=== PATIENT | female | born 1955 | race Caucasian/White ===

== ENCOUNTER 2016-10-30 11:40 | Inpatient (IN) | payer BC ==
[~2016-10-30] VITALS: Ht 157.5 cm; Wt 58.5 kg
[~2016-10-30 11:40] MED LIST: ATOR20TA38 PO; OMEP20CA16 PO; RIZA10TA4 PO; TOPI-25 PO; TOPI50TA5 PO
[2016-10-30 11:44] VITALS: Ht 157.5 cm; Wt 58.5 kg
[2016-10-30] MEDS ORDERED: NITROGLYCERIN 2% 1 GM OINT PKT TD STA (11:58)
[2016-10-30] MEDS ORDERED: ASPIRIN 81 MG TAB PO STA (11:58)
[2016-10-30] MEDS ORDERED: NITROGLYCERIN (SL) 0.4 MG TAB SL PRN (12:00)
[2016-10-30] MEDS ORDERED: RIFA550T4 PO (12:06)
[2016-10-30] MEDS ORDERED: ESCI5TAB PO (12:07)
[2016-10-30] MEDS ORDERED: RABE20TA5 PO (12:07)
[2016-10-30 12:11] LABS: ADD SCAN DIFF NO
[2016-10-30 12:13] LABS: BASOPHILS % 0.6 % (0.0-2.0); EOSINOPHILS # 0.1 10^3/ul (0.0-0.5); EOSINOPHILS % 1.4 % (0.0-7.0); HEMATOCRIT 33.7 % (37.0-47.0); HEMOGLOBIN 11.2 g/dl (12.0-16.0); LYMPHOCYTES # 1.3 10^3/ul (0.8-2.9); LYMPHOCYTES % 25.4 % (15.0-51.0); MEAN CORPUSCULAR HEMOGLOBIN 26.9 pg (29.0-33.0); MEAN CORPUSCULAR HGB CONC 33.2 g/dl (32.0-37.0); MEAN CORPUSCULAR VOLUME 80.8 fl (82.0-101.0); MONOCYTE # 0.4 10^3/ul (0.3-0.9); NEUTROPHIL # 3.2 10^3/ul (1.6-7.5); NEUTROPHILS % 64.4 % (39.0-77.0); PLATELET COUNT 107 10^3/UL (140-415); RED BLOOD COUNT 4.17 10^6/ul (4.20-5.40); RED CELL DISTRIBUTION WIDTH 15.6 % (11.5-14.5)
[2016-10-30 12:14] LABS: MEAN PLATELET VOLUME 11.4 fl (7.4-10.4)
[2016-10-30 12:29] LABS: INR 1.12; PROTIME 14.4 Sec (12.2-14.2); PT RATIO 1.1
[2016-10-30 12:30] LABS: PARTIAL THROMBOPLASTIN TIME 38.8 Sec (25.0-35.0)
--- NOTE | 2016-10-30 12:31 | RADRPT ---
PROCEDURE: Chest Radiograph. CLINICAL INDICATION: Chest pain TECHNIQUE: Single frontal chest radiograph. COMPARISON: Chest radiograph 02/18/2014 FINDINGS: The cardiomediastinal silhouette is within normal limits. No infiltrate or effusion is seen. Th e bones are intact. IMPRESSION: 1. Unremarkable chest radiograph. RPTAT: KK .Taz Villatoro MD, MD Date Time Electronically viewed and signed by .Taz Villatoro MD, on 10/30/2016 12:31 .B/
[2016-10-30 12:39] LABS: ANION GAP 11 (8-16); BLOOD UREA NITROGEN 15 mg/dl (7-20); CALCIUM 9.6 mg/dl (8.4-10.2); CARBON DIOXIDE 22 mmol/L (21-31); CHLORIDE 103 mmol/L (97-110); CREATININE 0.81 mg/dl (0.44-1.00); GLUCOSE 84 mg/dl (70-220); POTASSIUM 3.8 mmol/L (3.5-5.1); SODIUM 132 mmol/L (135-144)
[2016-10-30 12:45] LABS: PLATELET ESTIMATE PLT APPEAR DECREASED
[2016-10-30 12:58] LABS: TROPONIN-I < 0.012 ng/ml (0.00-0.12)
[2016-10-30] MEDS ORDERED: ONDANSETRON 4 MG INJ IV PRN ×2 (13:00→13:30)
[2016-10-30] MEDS ORDERED: ACETAMINOPHEN 325 MG TAB PO PRN ×2 (13:00→13:30)
--- NOTE | 2016-10-30 13:28 | HP ---
Date/Time of Note Date/Time of Note DATE: 10/30/16 TIME: 13:17 Assessment/Plan VTE Prophylaxis VTE Prophylaxis Intervention: other Lines/Catheters IV Catheter Type (from Nrsg): Saline Lock Assessment/Plan Assessment/Plan 1. Atypical chest pain with but marked elev of chol resonable to observe and obtain stress echo/nucl mill, consider repatha later, await cards eval. Doubt sxs are gi related. 2. Hyperlipidemia 3. Alcoholic liver dz, having successfully abstained at least 6 months after intensive in patient program. HPI/ROS Admit Date/Time Admit Date/Time October 30, 1:15 PM Hx of Present Illness Admitted with recurrent episodes of chest pain, pred right sided that on occasion rad to mid chest and on occasion to her left neck most often at rest without relationship to eating and on 1 occasion with nausea. These episodes last less then 1 hour, not pleuritic and not assoc with new cough. SOB may occur with these episodes. Onset of these sxs werre 4 days ago. ROS Respiratory: No cough, No sputum, No wheezing Gastrointestinal: other (occ epig discomfort and reflux sxs) Genitourinary: no complaints Musculoskeletal: no complaints Skin: no complaints Neurologic: No headache PMH/Family/Social Past Medical History 1. Hyperlipidemia for which she has not tolerated statins 2. Chronic liver dz sec to alcohol, have abstained 3. Hx migraine headaches 4. Hx anemia sec to liver dz 5. Hx varices, s/p ligation 6. Hx gastritis 7. Prior stress echo, remote nl 8. Hx sciatica gaining relief from epidural 9. Known peripheral neuropathy Family History Significant Family History: no pertinent family hx Social History Alcohol Use: sober Smoking Status: Former smoker Exam/Review of Systems Vital Signs Vitals Vital Signs Date Time Temp Pulse Resp B/P Pulse Ox O2 Delivery O2 Flow Rate FiO2 10/30/16 12:54 61 18 117/64 98 10/30/16 11:44 97.9 Exam Constitutional: No alert, No distress Eyes: No EOMI, No PERRL ENMT: nl external ears & nose, nl lips & teeth, nl nasal mucosa & septum Neck: non-tender, supple Respiratory: clear to auscultation, normal air movement Cardiovascular: nl pulses, regular rate and rhythm, No S3, No S4, No bruits, No diastolic murmur, No edema, No gallop, No irregular rhythm, No jugular venous distention (JVD), No murmurs/extra sounds, No other, No rub, No systolic murmur Gastrointestinal: hepatomegaly (with liver edge palp 1 cm below rcm, no palp spleen) Musculoskeletal: nl extremities to inspection Extremities: No calf tenderness, No pitting pedal edema, No tenderness Neurological: INTEGRATION ASSISTANT II-XII intact, nl mental status, nl speech, nl strength Skin: nl turgor, No rash or lesions Labs Result Diagram: 10/30/16 1205 10/30/16 1205 Medications Medications Current Medications Escitalopram Oxalate (Lexapro) 5 mg DAILY PO ; Start 10/31/16 at 09:00; Status UNV Rifaximin (Xifaxan) 550 mg BID PO ; Start 10/30/16 at 13:30; Status UNV Topiramate (Topamax) 50 mg QAM PO ; Start 10/31/16 at 09:00; Status UNV Topiramate (Topamax) 100 mg QPM PO ; Start 10/30/16 at 21:00; Status UNV Pantoprazole (Protonix Tab) 40 mg BID@06,18 PO ; Start 10/30/16 at 18:00; Status UNV Aspirin (Halfprin) 162 mg DAILY PO ; Start 10/31/16 at 09:00; Status UNV AARON ALCOCER MD Oct 30, 2016 13:28
[2016-10-30] MEDS ORDERED: NACL 0.9% 3 ML SYG IV SCH (13:30)
[2016-10-30] MEDS ORDERED: DOCUSATE SODIUM 100 MG CAP PO PRN (13:30)
[2016-10-30] MEDS: RIFAXIMIN 550 MG TAB PO SCH ×2 (13:30→21:07)
--- NOTE | 2016-10-30 13:38 | ERA ---
ER Documentation Chief Complaint Date/Time DATE: 10/30/16 TIME: 13:35 Chief Complaint chest pain since yesterday , no sob HPI Patient is a 61-year-old female with cirrhosis who presents with chest pain. The patient started with chest pain a few days ago but the pain was worse yesterday. She said that she had a midsternal "gripping pain". It lasted a few minutes and then went away. She denies shortness of breath. She has never had this before. She called her primary doctor Dr. Billy who sent her to the emergency department. She has not taken aspirin today. Upon review of old medical records this is the patient's third visit to the ER since 2001. ROS All systems reviewed and are negative except as per history of present illness. Medications Home Meds Reported Medications Rabeprazole Sodium* (Aciphex*) 20 Mg Tablet.dr, 20 MG PO DAILY, #30 TAB 10/30/16 Escitalopram Oxalate* (Lexapro*) 5 Mg Tablet, 5 MG PO DAILY, #30 TAB 10/30/16 Rifaximin* (Xifaxan*) 550 Mg Tablet, 550 MG PO BID, TAB 10/30/16 Topiramate* (Topiramate*) 100 Mg Tablet, 100 MG PO QPM, TAB 02/17/14 Topiramate* (Topiramate*) 50 Mg Tablet, 50 MG PO QAM, TAB 02/17/14 Discontinued Reported Medications Atorvastatin Calcium* (Atorvastatin Calcium*) 20 Mg Tablet, 20 MG PO HS, TAB 02/17/14 Rizatriptan Benzoate (Maxalt SENIOR SOFTWARE DEVELOPMENT ENGINEER) 10 Mg/Tab Tab.rapdis, 10 MG PO DAILY Y for MIGRANES, TAB may repeat after 2 hours, MAX 30 mg/24 hour 02/17/14 Omeprazole* (Omeprazole*) 20 Mg Capsule.dr, 20 MG PO DAILY, CAP 02/17/14 Allergies Allergies: Coded Allergies: codeine (Verified Allergy, Unknown, HIVES, 10/30/16) PMhx/Soc History of Surgery: Yes (COLONOSCOPY 5 DAYS AGO) Anesthesia Reaction: No Hx Neurological Disorder: No Hx Respiratory Disorders: Yes (PNA YEARS AGO) Hx Cardiac Disorders: No Hx Psychiatric Problems: No Hx Miscellaneous Medical Probl: Yes (ANEMIA, VAGINAL CARCINOMA 2012, HYPERCHOLESTEROLEMIA) Hx Alcohol Use: Yes (QUIT 5 MONTHS AGO) Hx Substance Use: No Hx Tobacco Use: No Smoking Status: Former smoker FmHx Family History: coronary disease Physical Exam Vitals Vital Signs Date Time Temp Pulse Resp B/P Pulse Ox O2 Delivery O2 Flow Rate FiO2 10/30/16 11:44 97.9 65 18 149/65 98 Physical Exam Const: No acute distress Head: Atraumatic Eyes: Normal Conjunctiva ENT: Normal External Ears, Nose and Mouth. Neck: Full range of motion..~ No meningismus. Resp: Clear to auscultation bilaterally Cardio: Regular rate and rhythm, no murmurs Abd: Soft, non tender, non distended. Normal bowel sounds Skin: No petechiae or rashes Back: No midline or flank tenderness Ext: No cyanosis, or edema Neur: Awake and alert Psych: Normal Mood and Affect Result Diagram: 10/30/16 1205 10/30/16 1205 Results 24 hrs Laboratory Tests Test 10/30/16 12:05 White Blood Count 5.010^3/ul Red Blood Count 4.1710^6/ul Hemoglobin 11.2g/dl Hematocrit 33.7% Mean Corpuscular Volume 80.8fl Mean Corpuscular Hemoglobin 26.9pg Mean Corpuscular Hemoglobin Concent 33.2g/dl Red Cell Distribution Width 15.6% Platelet Count 10438^3/UL Mean Platelet Volume 11.4fl Neutrophils % 64.4% Lymphocytes % 25.4% Monocytes % 8.0% Eosinophils % 1.4% Basophils % 0.6% Nucleated Red Blood Cells % 0.0/100WBC Neutrophils # 3.210^3/ul Lymphocytes # 1.310^3/ul Monocytes # 0.410^3/ul Eosinophils # 0.110^3/ul Basophils # 0.010^3/ul Nucleated Red Blood Cells # 0.010^3/ul Differential Comment AUTO w/SCAN Platelet Estimate PLT APPEAR DECREASED Prothrombin Time 14.4Sec Prothrombin Time Ratio 1.1 INR International Normalized Ratio 1.12 Activated Partial Thromboplast Time 38.8Sec Sodium Level 132mmol/L Potassium Level 3.8mmol/L Chloride Level 103mmol/L Carbon Dioxide Level 22mmol/L Anion Gap 11 Blood Urea Nitrogen 15mg/dl Creatinine 0.81mg/dl Glucose Level 84mg/dl Calcium Level 9.6mg/dl Troponin I < 0.012ng/ml Current Medications Medications (Trade) Dose Ordered Sig/Oswaldo Route PRN Reason Start Time Stop Time Status Last Admin Dose Admin Aspirin (Aspirin) 162 mg ONCE STAT PO 10/30/16 11:58 10/30/16 11:59 DC 10/30/16 12:13 Nitroglycerin (Nitroglycerin 2% Oint) 1 inch ONCE STAT TD 10/30/16 11:58 10/30/16 11:59 DC 10/30/16 12:14 Nitroglycerin (Nitroglycerin (Sl Tab) 0.4 Mg) 1 tab Q5M UP TO 3 DOSES PRN SL CHEST PAIN 10/30/16 12:00 Procedures/MDM EKG read by me: Rate/Rhythm: Regular rate and rhythm at a normal rate Intervals: Normal Impression: No evidence of ischemia or arrhythmia Chest x-ray negative per radiology. Patient is a 61-year-old female with cirrhosis who presents with chest pain. Her EKG was normal and her initial troponin was negative. Chest x-ray shows no pneumonia or pneumothorax. At this point I was concerned for acute coronary syndrome and therefore the patient will be admitted to a telemetry bed under the care of Dr. Billy. I doubt pneumonia, pneumothorax, pulmonary embolism, or aortic dissection. Dr. Billy has seen the patient in the emergency department already. Departure Diagnosis: Primary Impression: Chest pain Qualified Code: R07.9 - Chest pain, unspecified type Additional Impressions: Anemia Qualified Code: D64.9 - Anemia, unspecified type Hyponatremia Condition: ARTUR Snell MD Oct 30, 2016 13:38
[2016-10-30 14:20] VITALS: PULSE 57
--- NOTE | 2016-10-30 14:27 | CONS ---
Date/Time of Note Date/Time of Note DATE: 10/30/16 TIME: 13:36 Assessment/Plan Assessment/Plan Chief Complaint/Hosp Course Impression: - atypical chest pain- pain at rest, lasting a few mins. resolved on its own. complete acs r/o with serial trop/ekg. plan for stress testing in am to risk stratify given recurrent chest pain episodes. could also be related to gi/gerd, cont antiacid therapy. - hld- previously intolerant to statins, f/u as outpt - liver disease/etoh- per primary Problems: Consultation Date/Type/Reason Admit Date/Time October 30, 1:15 PM Date of Consultation: Oct 30, 2016 Type of Consultation: Cardiology Reason for Consultation chest pain Referring Provider: AARON ALCOCER MD Hx of Present Illness Ms. Christensen is a pleasant 61 y.o. woman without past cardiac hx. Pt presented to [facility] after having recurrent chest pain. States started 2-3 days ago and has had 4-5 episodes of sharp R sided chest pain, moderate in intensity, non radiating, without associated n/v, sweating, palpitations, dizziness, sob. Pain occurs at rest and lasts a few minutes then has a dull ache after for a few mins. Pain did wake her up from sleep last night around 2 am, and recurred this am so she drove herself to [facility] ED. Troponin neg x 1. echo obtained with normal LVEF, no wma. CXR without acute abnl and ekg with nsr, no ischemic changes. pt denies current cp. 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 Constitutional: no complaints Eyes: no complaints ENT: no complaints Respiratory: no complaints, No cough, No sputum, No wheezing Cardiovascular: chest pain Gastrointestinal: other (occ epig discomfort and reflux sxs) Genitourinary: no complaints Musculoskeletal: no complaints Skin: no complaints Neurologic: no complaints, No headache Psychological: nl mood/affect, no complaints Past Medical History 1. Hyperlipidemia for which she has not tolerated statins 2. Chronic liver dz sec to alcohol, have abstained 3. Hx migraine headaches 4. Hx anemia sec to liver dz 5. Hx varices, s/p ligation 6. Hx gastritis 7. Prior stress echo, remote nl 8. Hx sciatica gaining relief from epidural 9. Known peripheral neuropathy Family History Significant Family History: other (no high risk cad) Social History Alcohol Use: sober Smoking Status: Former smoker Drug Use: none Exam/Review of Systems Vital Signs Vitals Vital Signs Date Time Temp Pulse Resp B/P Pulse Ox O2 Delivery O2 Flow Rate FiO2 10/30/16 12:54 61 18 117/64 98 10/30/16 11:44 97.9 Exam Constitutional: alert, oriented Psych: no complaints Head: atraumatic, normocephalic Eyes: EOMI, nl conjunctiva ENMT: nl external ears & nose, nl nasal mucosa & septum Neck: non-tender, supple, No jvd Respiratory: clear to auscultation, normal air movement Cardiovascular: nl pulses, regular rate and rhythm, No edema, No irregular rhythm, No jugular venous distention (JVD), No murmurs /extra sounds Gastrointestinal: non-tender, soft Musculoskeletal: nl extremities to inspection Extremities: normal pulses Neurological: LEAD ETL DEVELOPER II-XII intact, nl mental status, nl speech, nl strength Results Result Diagram: 10/30/16 1205 10/30/16 1205 Results 24 hrs Laboratory Tests Test 10/30/16 12:05 White Blood Count 5.0 Red Blood Count 4.17 #L Hemoglobin 11.2 L Hematocrit 33.7 #L Mean Corpuscular Volume 80.8 L Mean Corpuscular Hemoglobin 26.9 L Mean Corpuscular Hemoglobin Concent 33.2 Red Cell Distribution Width 15.6 H Platelet Count 107 L Mean Platelet Volume 11.4 #H Neutrophils % 64.4 Lymphocytes % 25.4 Monocytes % 8.0 Eosinophils % 1.4 Basophils % 0.6 Nucleated Red Blood Cells % 0.0 Neutrophils # 3.2 Lymphocytes # 1.3 Monocytes # 0.4 Eosinophils # 0.1 Basophils # 0.0 Nucleated Red Blood Cells # 0.0 Differential Comment AUTO w/SCAN Platelet Estimate PLT APPEAR DECREASED Prothrombin Time 14.4 H Prothrombin Time Ratio 1.1 INR International Normalized Ratio 1.12 Activated Partial Thromboplast Time 38.8 H Sodium Level 132 L Potassium Level 3.8 Chloride Level 103 Carbon Dioxide Level 22 Anion Gap 11 Blood Urea Nitrogen 15 Creatinine 0.81 Glucose Level 84 Calcium Level 9.6 Troponin I < 0.012 Medications Medications Current Medications Escitalopram Oxalate (Lexapro) 5 mg DAILY PO ; Start 10/31/16 at 09:00 Rifaximin (Xifaxan) 550 mg BID PO ; Start 10/30/16 at 13:30 Topiramate (Topamax) 50 mg QAM PO ; Start 10/31/16 at 09:00 Topiramate (Topamax) 100 mg QPM PO ; Start 10/30/16 at 21:00 Pantoprazole (Protonix Tab) 40 mg BID@06,18 PO ; Start 10/30/16 at 18:00 Aspirin (Halfprin) 162 mg DAILY PO ; Start 10/31/16 at 09:00 Ondansetron HCl (Zofran Inj) 4 mg Q6H PRN IV NAUSEA AND/OR VOMITING; Start 10/30 at 13:30 Acetaminophen (Tylenol Tab) 650 mg Q6H PRN PO PAIN LEVEL 1-3 OR FEVER; Start at 13:30 Docusate Sodium (Colace) 100 mg Q12H PRN PO CONSTIPATION; Start 10/30/16 at 13: 30 Procedures Procedures cxr images reviewed, no acute abnl YOSELIN LEVY Oct 30, 2016 13:46
[2016-10-30 15:53] VITALS: BP 129/60; RESP 19
[2016-10-30 16:22] VITALS: PULSE 70
[2016-10-30] MEDS: PANTOPRAZOLE (EC) 40 MG TAB PO SCH (17:14)
[2016-10-30 18:13] LABS: CREATINE KINASE 57 IU/L (23-200)
[2016-10-30 18:26] LABS: CK-MB 0.72 ng/ml (0.0-2.4)
[2016-10-30 18:32] LABS: TROPONIN-I < 0.012 ng/ml (0.00-0.12)
[2016-10-30 20:00] VITALS: PULSE 65
[2016-10-30 20:11] VITALS: BP 120/60; RESP 20
[2016-10-30] MEDS ORDERED: TOPIRAMATE 100 MG TAB PO SCH (21:00)
--- NOTE | 2016-10-30 22:52 | RADRPT ---
Echocardiogram Report Patient Name: LOPEZ PHELPS Gender: Female Date: 1955 Study Date: 30-Oct-2016 Solvent Plant Operator: Satnam Cisneros [facility] Location: [id number] Ref. Physician: AARON ALCOCER Quality: Good Procedures: Transthoracic echocardiogram with complete 2D, M-Mode, and doppler examination. Indications: Chest Pain. 2D/M Mode Doppler Measurement Value Normal Ranges Measurement Value Normal Ranges LVIDd 2D 3.3 3.5 - 5.6 cm MODESTA Vmax 1.9 cm2 LVIDs 2D 2.3 2.1 - 4.1 cm MODESTA VTI 1.9 cm2 LVPWd 2D 0.9 0.6 - 1.1 cm AV Peak Se[place]our 1.3 m/sec IVSd 2D 0.9 0.6 - 1.1 cm AV Peak PG 6.3 mmHg AoR Diam 2D 2.7 2.0 - 3.7 cm LVOT Peak [place]our 1.3 m/sec EDV 2D 44.8 cm3 LVOT Peak PG 7.2 mmHg ESV 2D 12.4 cm3 TR Peak Se[place]our 2.2 m/sec LA Dimen 2D 3.4 2.3 - 4.0 cm TR Peak PG 20.1 mmHg LVOT Diam 1.5 cm RVSP 23.1 mmHg Findings Left Ventricle: Normal left ventricular systolic function. Normal left ventricular cavity size. Normal left ventricular wall thickness. Ejection fraction is visually estimated at 60 %. Tissue Doppler/Mitral Doppler indices are within normal limits. Right Ventricle: Normal right ventricular size. Normal right ventricular systolic function. Left Atrium: The left atrium is normal in size. Right Atrium: The right atrium is normal in size. Mitral Valve: Normal appearance and function of the mitral valve with trace physiologic regurgitation. Aortic Valve: No significant aortic stenosis or insufficiency. Aortic sclerosis without stenosis. Tricuspid Valve: Normal appearance of the tricuspid valve. Normal right ventricular systolic pressure. Estimated peak PA systolic pressure 26 mmHg. There is mild tricuspid regurgitation. Pulmonic Valve: Normal pulmonic valve appearance. There is trace pulmonic regurgitation. Pericardium: Normal pericardium with no significant pericardial effusion. Aorta: Normal aortic root. IVC: Normal size and normal respiratory collapse consistent with normal right atrial pressure. Conclusions Normal left ventricular systolic function. Normal left ventricular cavity size. Normal left ventricular wall thickness. Ejection fraction is visually estimated at 60 %. Tissue Doppler/Mitral Doppler indices are within normal limits. Normal right ventricular size. Normal right ventricular systolic function. No significant aortic stenosis or insufficiency. Aortic sclerosis without stenosis. Normal appearance of the tricuspid valve. Normal right ventricular systolic pressure. Estimated peak PA systolic pressure 26 mmHg. There is mild tricuspid regurgitation. Normal pericardium with no significant pericardial effusion. Normal size and normal respiratory collapse consistent with normal right atrial pressure. No Vegetation, masses, or thrombi seen. Electronically Signed By: Donald Mcintosh 30-Oct-2016 22:51:32 -0700 Patient Name: LOPEZ PHELPS Study Date: 30-Oct-2016 [id number]
[2016-10-30 23:52] VITALS: BP 125/63; RESP 20
[2016-10-31] VITALS: PULSE 65
[2016-10-31 01:01] LABS: CREATINE KINASE 48 IU/L (23-200)
[2016-10-31 01:21] LABS: TROPONIN-I < 0.012 ng/ml (0.00-0.12)
[2016-10-31 04:00] VITALS: PULSE 66
[2016-10-31 04:19] VITALS: BP 114/58; RESP 18
[2016-10-31 06:11] LABS: ADD SCAN DIFF NO
[2016-10-31] MEDS: PANTOPRAZOLE (EC) 40 MG TAB PO SCH (06:16)
[2016-10-31 06:19] LABS: ABNORMAL IP MESSAGE 1; BASOPHILS % 0.5 % (0.0-2.0); EOSINOPHILS # 0.1 10^3/ul (0.0-0.5); EOSINOPHILS % 2.5 % (0.0-7.0); HEMATOCRIT 35.2 % (37.0-47.0); HEMOGLOBIN 11.4 g/dl (12.0-16.0); LYMPHOCYTES # 1.2 10^3/ul (0.8-2.9); LYMPHOCYTES % 28.7 % (15.0-51.0); MEAN CORPUSCULAR HEMOGLOBIN 26.3 pg (29.0-33.0); MEAN CORPUSCULAR HGB CONC 32.4 g/dl (32.0-37.0); MEAN CORPUSCULAR VOLUME 81.3 fl (82.0-101.0); MEAN PLATELET VOLUME 11.6 fl (7.4-10.4); MONOCYTE # 0.4 10^3/ul (0.3-0.9); MONOCYTES % 9.3 % (0.0-11.0); NEUTROPHIL # 2.4 10^3/ul (1.6-7.5); NEUTROPHILS % 58.8 % (39.0-77.0); RED BLOOD COUNT 4.33 10^6/ul (4.20-5.40); RED CELL DISTRIBUTION WIDTH 15.8 % (11.5-14.5); WHITE BLOOD COUNT 4.1 10^3/ul (4.8-10.8)
[2016-10-31 06:55] LABS: ALBUMIN 4.5 g/dl (3.3-4.9); ALBUMIN/GLOBULIN RATIO 1.66; BILIRUBIN,INDIRECT 0.1 mg/dl (0-1.1); BILIRUBIN,TOTAL 0.1 mg/dl (0.2-1.3); CALCIUM 9.8 mg/dl (8.4-10.2); CREATININE 0.86 mg/dl (0.44-1.00); POTASSIUM 4.5 mmol/L (3.5-5.1); TOTAL PROTEIN 7.2 g/dl (6.1-8.1)
[2016-10-31 07:03] LABS: IRON 30 ug/dl (35-150)
[2016-10-31 07:05] LABS: MAGNESIUM 1.9 mg/dl (1.7-2.5)
[2016-10-31 07:12] LABS: THYROID STIMULATING HORMONE 1.78 MIU/L (0.465-4.680); TOTAL IRON BINDING CAPACITY 333 ug/dl (241-421)
[2016-10-31 07:16] LABS: FERRITIN 12.9 ng/ml (11.1-264.0)
[2016-10-31 08:04] VITALS: BP 102/55; PULSE 60; PULSE 66; RESP 18
[2016-10-31] MEDS: RIFAXIMIN 550 MG TAB PO SCH (08:33)
[2016-10-31] MEDS ORDERED: ASPIRIN (EC) 81 MG TAB PO SCH (09:00)
[2016-10-31] MEDS ORDERED: TOPIRAMATE 25 MG TAB PO SCH (09:00)
[2016-10-31] MEDS ORDERED: ESCITALOPRAM 10 MG TAB PO SCH (09:00)
[2016-10-31 09:24] LABS: PLATELET COUNT 96 10^3/UL (140-415); PLATELET ESTIMATE PLT APPEAR DECREASED
--- NOTE | 2016-10-31 09:26 | RADRPT ---
PROCEDURE: US Abdomen complete. CLINICAL INDICATION: Right-sided abdominal pain TECHNIQUE: Multiple real-time longitudinal and transverse images were acquired of the patient's ab domen and retroperitoneum utilizing a curved array transducer. COMPARISON: CT abdomen and pelvis dated 02/17/2014 FINDINGS: The liver is normal in size and demonstrates normal echogenicity. There is a 4.5 cm cyst within th e left hepatic lobe The gallbladder is normal in appearance. There is no pericholecystic fluid or g allbladder wall thickening. No intra or extrahepatic biliary dilatation is seen. The common bile padmini t measures 4.5 mm in maximal dimension. The visualized portions of the pancreas are unremarkable wi th obscuration of the tail of the pancreas. The spleen is normal. No free fluid is identified. The right kidney measures 11.0 cm in length. The left kidney measures 9.6 cm in length. There is n ormal echogenicity within the kidneys. There are no perinephric fluid collections. No hydronephros is, mass, or calculus is seen. The aorta and IVC are unremarkable. IMPRESSION: Left hepatic lobe cyst measuring 4.5 cm in diameter. Findings are not significantly changed when co mpared to prior CT abdomen and pelvis dated 02/17/2014. Otherwise, unremarkable abdominal ultrasoun d. RPTAT: HH .Yola Joseph MD, Date Time Electronically viewed and signed by .Yola Joseph MD, on 10/31/2016 09:26 .G/
--- NOTE | 2016-10-31 10:35 | CONS ---
Date/Time of Note Date/Time of Note DATE: 10/31/16 TIME: 10:32 Assessment/Plan Assessment/Plan Additional Assessment/Plan Impression/Recs: - Atypical chest pain- Likely non-cardiac in nature. Right sided, non- exertional. - HL- previously intolerant to statins, f/u as outpt - Probable liver disease/etoh- per primary >> Pending stress echo >> continue with lifestyle modification >> outpt f/u of HL consider med Rx >> Discussed with Dr Alcocer >> if stress echo negative ok for d/c home Consultation Date/Type/Reason Admit Date/Time Oct 30, 2016 at 12:35 Initial Consult Date 10/30/16 Type of Consultation: Cardiology Referring Provider: AARON ALCOCER MD 24 HR Interval Summary Free Text/Dictation Pt without CP this am. NO SOB. Pain is right sided. Toolroom Clerk palpitations Exam/Review of Systems Vital Signs Vitals Vital Signs Date Time Temp Pulse Resp B/P Pulse Ox O2 Delivery O2 Flow Rate FiO2 10/31/16 08:04 66 10/31/16 08:04 98.2 18 102/55 98 Intake and Output 10/30/16 10/30/16 10/31/16 15:00 23:00 07:00 Intake Total 460 ml 60 ml Balance 460 ml 60 ml Exam Constitutional: alert, oriented, well developed Psych: nl mood/affect, no complaints Head: normocephalic Eyes: nl conjunctiva ENMT: nl external ears & nose Neck: non-tender, supple Respiratory: clear to auscultation, normal air movement Cardiovascular: nl pulses, regular rate and rhythm Gastrointestinal: non-tender, soft Musculoskeletal: nl extremities to inspection Extremities: normal pulses Neurological: FURNITURE SHAMPOOER II-XII intact Results Result Diagram: 10/31/16 0542 10/31/16 0542 Results 24 hrs Laboratory Tests Test 10/30/16 12:05 10/30/16 17:45 10/31/16 00:25 10/31/16 05:42 White Blood Count 5.0 4.1 L Red Blood Count 4.17 #L 4.33 Hemoglobin 11.2 L 11.4 L Hematocrit 33.7 #L 35.2 L Mean Corpuscular Volume 80.8 L 81.3 L Mean Corpuscular Hemoglobin 26.9 L 26.3 L Mean Corpuscular Hemoglobin Concent 33.2 32.4 Red Cell Distribution Width 15.6 H 15.8 H Platelet Count 107 L 96 L Mean Platelet Volume 11.4 #H 11.6 H Neutrophils % 64.4 58.8 Lymphocytes % 25.4 28.7 Monocytes % 8.0 9.3 Eosinophils % 1.4 2.5 Basophils % 0.6 0.5 Nucleated Red Blood Cells % 0.0 0.0 Neutrophils # 3.2 2.4 Lymphocytes # 1.3 1.2 Monocytes # 0.4 0.4 Eosinophils # 0.1 0.1 Basophils # 0.0 0.0 Nucleated Red Blood Cells # 0.0 0.0 Differential Comment AUTO w/SCAN Platelet Estimate PLT APPEAR DECREASED PLT APPEAR DECREASED Prothrombin Time 14.4 H Prothrombin Time Ratio 1.1 INR International Normalized Ratio 1.12 Activated Partial Thromboplast Time 38.8 H 37.9 H Sodium Level 132 L 143 Potassium Level 3.8 4.5 Chloride Level 103 105 Carbon Dioxide Level 22 23 Anion Gap 11 20 #H Blood Urea Nitrogen 15 15 Creatinine 0.81 0.86 Glucose Level 84 96 Calcium Level 9.6 9.8 Troponin I < 0.012 < 0.012 < 0.012 Creatine Kinase 57 48 Creatine Kinase Index 1.3 1.5 Creatinine Kinase MB (Mass) 0.72 0.70 Large Platelets FEW Phosphorus Level 4.0 Magnesium Level 1.9 Iron Level 30 L Total Iron Binding Capacity 333 Percent Iron Saturation 9 L Ferritin 12.9 Total Bilirubin 0.1 L Direct Bilirubin 0.00 Indirect Bilirubin 0.1 Aspartate Amino Transf (AST/SGOT) 21 Alanine Aminotransferase (ALT/SGPT) 17 Alkaline Phosphatase 73 Total Protein 7.2 Albumin 4.5 Globulin 2.70 Albumin/Globulin Ratio 1.66 Thyroid Stimulating Hormone (TSH) 1.780 Test 10/31/16 08:50 Ammonia 11 Medications Medications Current Medications Escitalopram Oxalate (Lexapro) 5 mg DAILY PO Last administered on 10/31/16 08: 33; Admin Dose 5 MG; Start 10/31/16 at 09:00 Rifaximin (Xifaxan) 550 mg BID PO Last administered on 10/31/16 08:33; Admin Dose 550 MG; Start 10/30/16 at 13:30 Topiramate (Topamax) 50 mg QAM PO Last administered on 10/31/16 08:33; Admin Dose 50 MG; Start 10/31/16 at 09:00 Topiramate (Topamax) 100 mg QPM PO Last administered on 10/30/16 21:18; Admin Dose 100 MG; Start 10/30/16 at 21:00 Pantoprazole (Protonix Tab) 40 mg BID@,18 PO Last administered on 10/31/16 06 :16; Admin Dose 40 MG; Start 10/30/16 at 18:00 Aspirin (Halfprin) 162 mg DAILY PO ; Start 10/31/16 at 09:00 Ondansetron HCl (Zofran Inj) 4 mg Q6H PRN IV NAUSEA AND/OR VOMITING; Start 10/30 at 13:30 Acetaminophen (Tylenol Tab) 650 mg Q6H PRN PO PAIN LEVEL 1-3 OR FEVER; Start at 13:30 Docusate Sodium (Colace) 100 mg Q12H PRN PO CONSTIPATION; Start 10/30/16 at 13: 30 ALBER MARTINI MD Oct 31, 2016 10:35
--- NOTE | 2016-10-31 11:39 | PN ---
Date/Time of Note Date/Time of Note DATE: 10/31/16 TIME: 11:37 Assessment/Plan VTE Prophylaxis VTE Prophylaxis Intervention: other Lines/Catheters IV Catheter Type (from Nrsg): Saline Lock Assessment/Plan Assessment/Plan 1. Chest pain prob musculolig as stress echo and abd ultz was neg 2. Rev with pt and cardiology 3. Chronic liver dz Subjective 24 Hr Interval Summary Respiratory: No shortness of breath Cardiovascular: No chest pain, No lightheadedness Gastrointestinal: no complaints Genitourinary: no complaints Musculoskeletal: no complaints Exam/Review of Systems Vital Signs Vitals Vital Signs Date Time Temp Pulse Resp B/P Pulse Ox O2 Delivery O2 Flow Rate FiO2 10/31/16 08:04 66 10/31/16 08:04 98.2 18 102/55 98 Intake and Output 10/30/16 10/30/16 10/31/16 15:00 23:00 07:00 Intake Total 460 ml 60 ml Balance 460 ml 60 ml Exam Neck: No jvd Respiratory: clear to auscultation Cardiovascular: regular rate and rhythm Gastrointestinal: soft Extremities: edema (and no calf tend) Results Result Diagram: 10/31/16 0542 10/31/16 0542 Results 24 hrs Laboratory Tests Test 10/30/16 12:05 10/30/16 17:45 10/31/16 00:25 10/31/16 05:42 White Blood Count 5.0 4.1 L Red Blood Count 4.17 #L 4.33 Hemoglobin 11.2 L 11.4 L Hematocrit 33.7 #L 35.2 L Mean Corpuscular Volume 80.8 L 81.3 L Mean Corpuscular Hemoglobin 26.9 L 26.3 L Mean Corpuscular Hemoglobin Concent 33.2 32.4 Red Cell Distribution Width 15.6 H 15.8 H Platelet Count 107 L 96 L Mean Platelet Volume 11.4 #H 11.6 H Neutrophils % 64.4 58.8 Lymphocytes % 25.4 28.7 Monocytes % 8.0 9.3 Eosinophils % 1.4 2.5 Basophils % 0.6 0.5 Nucleated Red Blood Cells % 0.0 0.0 Neutrophils # 3.2 2.4 Lymphocytes # 1.3 1.2 Monocytes # 0.4 0.4 Eosinophils # 0.1 0.1 Basophils # 0.0 0.0 Nucleated Red Blood Cells # 0.0 0.0 Differential Comment AUTO w/SCAN Platelet Estimate PLT APPEAR DECREASED PLT APPEAR DECREASED Prothrombin Time 14.4 H Prothrombin Time Ratio 1.1 INR International Normalized Ratio 1.12 Activated Partial Thromboplast Time 38.8 H 37.9 H Sodium Level 132 L 143 Potassium Level 3.8 4.5 Chloride Level 103 105 Carbon Dioxide Level 22 23 Anion Gap 11 20 #H Blood Urea Nitrogen 15 15 Creatinine 0.81 0.86 Glucose Level 84 96 Calcium Level 9.6 9.8 Troponin I < 0.012 < 0.012 < 0.012 Creatine Kinase 57 48 Creatine Kinase Index 1.3 1.5 Creatinine Kinase MB (Mass) 0.72 0.70 Large Platelets FEW Phosphorus Level 4.0 Magnesium Level 1.9 Iron Level 30 L Total Iron Binding Capacity 333 Percent Iron Saturation 9 L Ferritin 12.9 Total Bilirubin 0.1 L Direct Bilirubin 0.00 Indirect Bilirubin 0.1 Aspartate Amino Transf (AST/SGOT) 21 Alanine Aminotransferase (ALT/SGPT) 17 Alkaline Phosphatase 73 Total Protein 7.2 Albumin 4.5 Globulin 2.70 Albumin/Globulin Ratio 1.66 Thyroid Stimulating Hormone (TSH) 1.780 Test 10/31/16 08:50 Ammonia 11 Medications Medications Current Medications Escitalopram Oxalate (Lexapro) 5 mg DAILY PO Last administered on 10/31/16 08: 33; Admin Dose 5 MG; Start 10/31/16 at 09:00 Rifaximin (Xifaxan) 550 mg BID PO Last administered on 10/31/16 08:33; Admin Dose 550 MG; Start 10/30/16 at 13:30 Topiramate (Topamax) 50 mg QAM PO Last administered on 10/31/16 08:33; Admin Dose 50 MG; Start 10/31/16 at 09:00 Topiramate (Topamax) 100 mg QPM PO Last administered on 10/30/16 21:18; Admin Dose 100 MG; Start 10/30/16 at 21:00 Pantoprazole (Protonix Tab) 40 mg BID@06,18 PO Last administered on 10/31/16 06 :16; Admin Dose 40 MG; Start 10/30/16 at 18:00 Aspirin (Halfprin) 162 mg DAILY PO ; Start 10/31/16 at 09:00 Ondansetron HCl (Zofran Inj) 4 mg Q6H PRN IV NAUSEA AND/OR VOMITING; Start 10/30 at 13:30 Acetaminophen (Tylenol Tab) 650 mg Q6H PRN PO PAIN LEVEL 1-3 OR FEVER; Start at 13:30 Docusate Sodium (Colace) 100 mg Q12H PRN PO CONSTIPATION; Start 10/30/16 at 13: 30 AARON ALCOCER MD Oct 31, 2016 11:39
--- NOTE | 2016-11-01 17:41 | RADRPT ---
Stress Test Report Patient Name: LOPEZ PHELPS Gender: Female Date: 1955 Study Date: 31-Oct-2016 [employer]ist: Location: I Ref. Physician: DONALD LEVY Quality: Good Procedures: Treadmill stress echocardiogram. Indications: Chest Pain. Findings Stress Data: Protocol - Brennen Protocol. Duration - 9.21 min. Baseline HR - 62. Peak HR - 171. Predicted Maximal HR - 157. Percent predicted max HR achieved - 109 %. Baseline BP - 110/54. Peak BP - 178/74. RatePressure Product - [id number]. Resting Echo Findings: Normal left ventricular size and systolic function with normal wall thickness at rest. Resting ECG: Normal EKG. Exercise Stress LV Function: Normal hyperdynamic contractile response with no inducible ischemia. Exercise ECG: Normal post exercise ECG. Reason for Termination: Maximal Predicted HR achieved. Functional Capacity: Above average exercise functional capacity. Blood Pressure Response: Normal blood pressure response. Arrhythmia: No exercise induced arrhythmias. Conclusions 1.Normal hemodynamic response to exercise. 2.No Echocardiographic evidence of ischemia. 3.No ECG evidence of ischemia. 4.This is a low risk study. Electronically Signed By: Donald Levy 01-Nov-2016 17:40:46 -0700 Patient Name: LOPEZ PHELPS Study Date: 31-Oct-2016 [id number]
== END 2016-10-31 12:10 | disposition home or self-care (01) | DRG 313 ==
LOC: E/R 11:40 → TEL 12:35
PROVIDERS: ADMIT Internal Medicine; ATTEND Internal Medicine
DX: R07.89 Other chest pain (principal); K70.9 Alcoholic liver disease, unspecified; G62.9 Polyneuropathy, unspecified; E78.5 Hyperlipidemia, unspecified; F10.20 Alcohol dependence, uncomplicated; Z87.891 Personal history of nicotine dependence
CPT/HCPCS: 36415; 71010; 76700; 80048; 80053; 82140; 82550; 82553; 82728; 83540; 83735; 84100; 84443; 84484; 85025; 85610; 85730; 93005; 93306; 93350

== ENCOUNTER 2018-12-25 18:39 | Emergency (ER) | payer BC ==
[~2018-12-25] VITALS: Ht 157.5 cm; Wt 57.6 kg
[~2018-12-25 18:39] MED LIST changes: -ATOR20TA38 PO; +ESCI5TAB PO; -OMEP20CA16 PO; +RABE20TA18 PO; +RIFA550T4 PO; -RIZA10TA4 PO; -TOPI-25 PO; +TOPI100T11 PO; +TOPI50TA13 PO; -TOPI50TA5 PO
[2018-12-25 18:56] VITALS: Ht 157.5 cm; Wt 57.6 kg
[2018-12-25] MEDS ORDERED: KETOROLAC 15 MG INJ IM ONE (20:30)
[2018-12-25 21:52] VITALS: BP 154/75; PULSE 66; RESP 16
== END 2018-12-25 21:53 | disposition home or self-care (01) ==
LOC: E/R 18:39
DX: S06.0X0A Concussion without loss of consciousness, initial encounter (principal); W18.39XA Other fall on same level, initial encounter; Y92.9 Unspecified place or not applicable; Z85.44 Personal history of malignant neoplasm of other female genital organs
CPT/HCPCS: 70450; 72125; 96372; 99285; J1885